=== PATIENT | female | born 1980 | race Caucasian/White ===

== ENCOUNTER 2016-05-19 10:54 | Day surgery (SDC) | payer MEDICAID ==
[2016-05-19] MEDS ORDERED: MIDAZOLAM 2 MG/2 ML VIAL ONE ×3 (11:50→11:55)
[2016-05-19] MEDS ORDERED: LIDOCAINE 2% 100 MG/5 ML SYR IVP ONE (11:54)
[2016-05-19] MEDS ORDERED: GLYCOPYRROLATE 0.2 MG/1 ML VIAL ONE (11:54)
[2016-05-19] MEDS ORDERED: fentaNYL 250 MCG/5 ML INJ ONE (11:55)
[2016-05-19] MEDS ORDERED: PROPOFOL/EMULSION 500 MG/50 ML BOTTLE IV ONE (11:55)
[2016-05-19] MEDS ORDERED: BUPIVACAINE 0.25% 30 ML SDV ONE (12:21)
[2016-05-19] MEDS ORDERED: DEPO METHYLPREDNISOLONE 80 MG/ML SDV ONE (13:22)
[2016-05-19] MEDS ORDERED: ACETAMINOPHEN 325 MG SUPP PR PRN (13:54)
[2016-05-19] MEDS ORDERED: ACETAMINOPHEN 325 MG TAB ONE (13:55)
[2016-05-19] MEDS ORDERED: ONDANSETRON 4 MG/2 ML VIAL IVP PRN (13:55)
--- NOTE | 2016-05-19 15:14 | IR ---
Left Trigeminal Nerve Block HISTORY: Left trigeminal neuralgia. The patient has been pleased with results of previous left trigem inal nerve blocks of December 13, 2015, and May 31, 2015. Symptoms have recurred over the last thre e weeks, however. Consent: Risks and benefits of the procedure were discussed in detail, and informed consent was obta ined. The patient accepted the risks of therapeutic failure, worsening left hemifacial pain, interna l bleeding extending to left sclera, and loss of left corneal reflex. Medications: Deep intravenous conscious sedation by anesthesiologist Dr. Joy Burk. Fluoroscopy time in minutes: 0.6 AP, 0.7 lateral. Estimated exposure in mGy: 38.5. Technique: The left cheek was prepped. 1% Xylocaine was used for local anesthetic. Using biplane fluo roscopic guidance, a 22-gauge spinal needle was inserted in the classic extrabuccal approach. Positio n of the tip of the needle was assessed with 0.4 mL of Isovue-M 300, and biplane spot images were obt ained. 0.4 mL of Depo-Medrol (80 mg/mL) and 0.4 mL of preservative-free 0.5% bupivacaine were injecte d. Additional 0.2 mL of each medication were injected as the needle was withdrawn. The patient tolera byron the procedure with some difficulty, and was taken to postprocedure recovery area in stable condit ion. Corneal reflexes were brisk bilaterally before and following the procedure. FINDINGS: Small amount of contrast is found around the left trigeminal nerve at the left foramen oval e. No vascular uptake of contrast. IMPRESSION: Left trigeminal nerve block, using long-acting steroid and long-acting anesthetic. - - - - - - - - - - - - - - - - - - - - - - - - - - - - - (PQRS measures: Current medications were listed in the medical record, including all known prescripti ons, [id number] medications, herbal medications, and nutritional supplements. Tobacco use: The patient is a current smoker. She was advised to quit. Prophylactic Antibiotic: Unnecessary. VTE Proph ylaxis: Unnecessary.)
== END 2016-05-19 14:40 | disposition home or self-care (01) ==
LOC: FIMAGING 10:54
PROVIDERS: ATTEND Psychiatry & Neurology Neurology
PROC: 3E0X33Z Introduction of Anti-inflammatory into Cranial Nerves, Percutaneous Approach (ICD-10-PCS; principal; 2016-05-19 13:24)
PROC: 3E0X3BZ Introduction of Anesthetic Agent into Cranial Nerves, Percutaneous Approach (ICD-10-PCS; principal; 2016-05-19 13:24)
DX: G50.0 Trigeminal neuralgia (principal); G43.719 Chronic migraine without aura, intractable, without status migrainosus
CPT/HCPCS: J1020; J2001; J2250; J2704; J3010

== ENCOUNTER 2016-08-16 08:53 | Emergency (ER) | payer MEDICAID ==
[2016-08-16 08:57] VITALS: RESP 16
--- NOTE | 2016-08-16 09:11 | EDPHY ---
H & P Stated Complaint: UTI sxs x 1 week;alleviated with AZO Time Seen by Provider: 08/16/16 09:05 HPI/ROS: CHIEF COMPLAINT: UTI symptoms HISTORY OF PRESENT ILLNESS: 36-year-old female presents emergency department complaining of urinary frequency, urgency and dysuria x1 week. Patient has been taking [id number] AZO which has been relieving her symptoms. She denies fevers. Nausea x2 days, no flank pain. She denies any unusual vaginal discharge. She is sexually active, reports she uses condoms 100% of the time. No hematuria, no diarrhea, she reports mild suprapubic tenderness. REVIEW OF SYSTEMS: A comprehensive 10 point review of systems is otherwise negative aside from elements mentioned in the history of present illness. Source: Patient Exam Limitations: No limitations - Personal History LMP (Females 10-55): 15-21 Days Ago Current Tetanus Diphtheria and Acellular Pertussis (TDAP): Yes Tetanus Vaccine Date: 2014 - Medical/Surgical History Hx Asthma: Yes Hx Chronic Respiratory Disease: No Hx Diabetes: No Hx Cardiac Disease: No Hx Renal Disease: No Hx Cirrhosis: No Hx Alcoholism: No Hx HIV/AIDS: No Hx Splenectomy or Spleen Trauma: No Other PMH: PMH: TRIGEMINAL NEURALGIA, ASTHMA, KIDNEY STONES, osteomylitis - Social History Smoking Status: Current every day smoker - Physical Exam Exam: Physical Exam Gen: Alert and Oriented, NAD HEENT: PERRL, moist mucous membranes NECK: no meningismus CV: regular rate and regular rhythm PULM: CTAB, no wheezes ABDOMEN: soft, mild suprapubic tenderness to palpation, BS present BACK: No CVA tenderness NEURO: Neurologically grossly intact EXTREMITIES: normal appearing SKIN: no rash or break in skin on exposed skin PSYCH: answers questions appropriately. Constitutional: Initial Vital Signs Temperature (C) 37 C 08/16/16 08:54 Heart Rate 94 08/16/16 08:54 Respiratory Rate 16 08/16/16 08:54 Blood Pressure 124/89 H 08/16/16 08:54 O2 Sat (%) 97 08/16/16 08:54 O2 Delivery Mode Room Air Allergies/Adverse Reactions: vancomycin Allergy (Mild, Verified 08/16/16 08:57) Rash carbamazepine [From Tegretol] Allergy (Verified 08/16/16 08:54) Swelling/neck,face,throat Home Medications: Medication Instructions Recorded Celexa 1 tab PO HS 08/18/15 Celebrex 200 mg PO DAILY 05/15/16 Oxycabazapine 300 mg PO BID 05/15/16 Cephalexin [Keflex] 500 mg PO BID 5 Days 08/16/16 Fluconazole [Diflucan (*)] 150 mg PO ONCE #1 tab 08/16/16 Phenazopyridine HCl [Pyridium] 200 mg PO TID #6 tab 08/16/16 Medical Decision Making ED Course/Re-evaluation: 36-year-old presents with UTI symptoms, no evidence of pyelonephritis. Urinalysis shows 50-182 WBCs and RBCs. Urine culture is pending. Patient has requested chlamydia and gonorrhea testing as well. She will call for these results. Patient is requesting a prescription for Diflucan as she frequently gets yeast infections after antibiotics. I encouraged the patient to take probiotics while taking the antibiotics and she should not take this prescription unless she needs it. Differential Diagnosis: Diagnosis considered but not limited to urinary tract infection, cystitis, pyelonephritis, STI - Data Points Laboratory Results: 08/16/16 08/16/16 08/16/16 09:30 09:09 09:09 Urine Color ORANGE Urine Appearance HAZY Urine pH TNP Ur Specific [place] 1.020 (1.002-1.030) Urine Protein TRACE H (NEGATIVE) Urine Ketones TNP Urine Blood 2+ H (NEGATIVE) Urine Nitrate TNP Urine Bilirubin TNP Urine Urobilinogen TNP Ur Leukocyte Esterase TNP Urine RBC 50-182 /hpf H /hpf (0-3) Urine WBC 50-182 /hpf H /hpf (0-3) Ur Epithelial Cells TRACE /lpf /lpf (NONE-1+) Urine Bacteria TRACE /hpf H /hpf (NONE SEEN) Urine Mucus TRACE /lpf /lpf (NONE-1+) Ur Culture Indicated? INDICATED H (NI) Urine Glucose TNP Urine Test NEGATIVE C.trachomatis RNA (TMA) Pending N.gonorrhoeae RNA (TMA) Pending Medications Given: Discontinued Medications Cephalexin HCl (Keflex) 500 mg PO EDNOW ONE PRN Reason: Protocol Stop: 08/16/16 10:22 Last Admin: 08/16/16 10:25 Dose: 500 mg Departure - Departure Disposition: Home, Routine, Self-Care Clinical Impression: Urinary tract infection Qualifiers: Urinary tract infection type: acute cystitis Hematuria presence: with hematuria Qualified Code(s): N30.01 - Acute cystitis with hematuria Condition: Good Instructions: Urinary Tract Infection in Women (ED) Additional Instructions: Take your antibiotics as prescribed, 500 mg of Keflex twice daily for 5 days. Call [phone] in 48 hours for your chlamydia and gonorrhea results. Return to the emergency department for worsening symptoms, vomiting, fevers. Referrals: Camryn Arteaga [Primary Care Provider] - As per Instructions Prescriptions: Cephalexin [Keflex] 500 mg PO BID 5 Days Fluconazole [Diflucan (*)] 150 mg PO ONCE #1 tab Phenazopyridine HCl [Pyridium] 200 mg PO TID #6 tab
[2016-08-16 10:10] LABS: COLOR ORANGE
[2016-08-16 10:18] LABS: BACTERIA TRACE /hpf (NONE SEEN); MUCUS TRACE /lpf (NONE-1+); RBC,URINE 50-182 /hpf (0-3); WBC,URINE 50-182 /hpf (0-3)
[2016-08-16] MEDS ORDERED: CEPHALEXIN 500 MG CAP PO ONE (10:21)
[2016-08-16 10:33] VITALS: BP 111/63; PULSE 75; TEMP 97.7; O2SAT 98
[2016-08-17 12:54] LABS: CHLAMYDIA AMPLIFICATION GENPRB NEGATIVE (NEGATIVE)
== END 2016-08-16 10:33 | disposition home or self-care (01) ==
DX: N30.01 Acute cystitis with hematuria (principal); B96.89 Other specified bacterial agents as the cause of diseases classified elsewhere; J45.909 Unspecified asthma, uncomplicated; F17.200 Nicotine dependence, unspecified, uncomplicated

== ENCOUNTER → 2016-09-12 | Day surgery (SDC) | payer MEDICAID ==
[~2016-09-12] MED LIST: NS 1,000 ML IV SCH
== END | disposition home or self-care (01) ==
LOC: FIMAGING 11:35
PROVIDERS: ATTEND Psychiatry & Neurology Neurology
DX: G50.0 Trigeminal neuralgia (principal); J45.909 Unspecified asthma, uncomplicated; K29.70 Gastritis, unspecified, without bleeding; Z72.0 Tobacco use; Z87.442 Personal history of urinary calculi

== ENCOUNTER 2017-01-04 07:59 | Day surgery (SDC) | payer MEDICAID ==
[2017-01-04] MEDS ORDERED: MIDAZOLAM 2 MG/2 ML VIAL ONE ×2 (10:52→11:47)
[2017-01-04] MEDS ORDERED: PROPOFOL/EMULSION 500 MG/50 ML BOTTLE IV ONE (10:53)
[2017-01-04] MEDS ORDERED: fentaNYL 100 MCG/2 ML INJ ONE ×5 (10:53→13:24)
[2017-01-04] MEDS ORDERED: DEXAMETHASONE 4 MG/ML VIAL ONE (11:09)
[2017-01-04] MEDS ORDERED: LIDOCAINE 2% JELLY 5 ML TUBE ONE (11:09)
[2017-01-04] MEDS ORDERED: GLYCOPYRROLATE 0.2 MG/1 ML VIAL ONE (11:13)
[2017-01-04] MEDS ORDERED: BUPIVACAINE 0.5% 30 ML SDV ONE (11:47)
[2017-01-04] MEDS ORDERED: DEPO METHYLPREDNISOLONE 80 MG/ML SDV ONE (11:47)
[2017-01-04] MEDS ORDERED: IOPAMIDOL (ISOVUE-M 300) 15 ML VIAL ONE (11:48)
[2017-01-04] MEDS: fentaNYL 100 MCG/2 ML INJ IVP PRN ×7 (11:49→13:25)
[2017-01-04 12:22] VITALS: PULSE 78; TEMP 97.5
[2017-01-04] MEDS ORDERED: HYDROCODONE/APAP 5/325 TAB ONE (12:30)
[2017-01-04] MEDS ORDERED: ONDANSETRON 4 MG/2 ML VIAL ONE (12:50)
[2017-01-04] MEDS ORDERED: MIDAZOLAM 2 MG/2 ML VIAL IVP PRN (12:56)
[2017-01-04] MEDS ORDERED: HYDROCODONE/APAP 5/325 TAB PO PRN (12:57)
[2017-01-04] MEDS ORDERED: OXYCODONE/APAP 5/325 TAB PO PRN (13:00)
[2017-01-04] MEDS ORDERED: ONDANSETRON 4 MG/2 ML VIAL IVP PRN (13:01)
[2017-01-04 13:39] VITALS: BP 124/80; RESP 16; O2SAT 98
== END 2017-01-04 14:55 | disposition home or self-care (01) ==
LOC: FIMAGING 07:59
PROVIDERS: ATTEND Psychiatry & Neurology Neurology
PROC: 3E0X33Z Introduction of Anti-inflammatory into Cranial Nerves, Percutaneous Approach (ICD-10-PCS; principal; 2017-01-04 11:46)
PROC: 3E0X3BZ Introduction of Anesthetic Agent into Cranial Nerves, Percutaneous Approach (ICD-10-PCS; principal; 2017-01-04 11:46)
DX: G50.0 Trigeminal neuralgia (principal); J45.909 Unspecified asthma, uncomplicated; K29.70 Gastritis, unspecified, without bleeding; F17.200 Nicotine dependence, unspecified, uncomplicated
CPT/HCPCS: J1040; J1100; J2250; J2405; J2704; J3010; Q9967